=== PATIENT | female | born 1980 | race Caucasian/White ===

== ENCOUNTER 2018-05-22 14:19 | Outpatient (CLI) | payer OTHER ==
--- NOTE | 2018-05-22 15:42 | CT ---
CT OF THE ABDOMEN AND PELVIS WITHOUT CONTRAST: Comparison: None. History: Acute right sided low back pain/flank pain for several months. Technique: Multiple contiguous axial images were obtained in a CT of the abdomen and pelvis without c ontrast. Coronal reformats were performed. FINDINGS: The patient is status post cholecystectomy. The liver, kidneys, adrenal glands, spleen and pancreas a re unremarkable, although evaluation is limited without IV contrast. No calcifications are seen in ei ther kidney or ureter. The large and small bowel are unremarkable. Radiodensity seen adjacent to the cecum which could be fr om prior appendectomy or this could represent contrast within a very small appendix. The reproductive organs are unremarkable. No abdominal or pelvic lymphadenopathy are seen. The osseous structures, visualized inferior thorax, and abdominal wall soft tissues are unremarkable. IMPRESSION: 1. No evidence of acute intraabdominal/pelvic abnormality. POS: CET
== END 2018-05-22 14:20 | disposition home or self-care (01) ==
LOC: SCSCT 14:19
PROVIDERS: ATTEND Family Medicine
DX: M54.5 Low back pain (principal)
CPT/HCPCS: 74176